=== PATIENT | male | born 1945 | race Caucasian/White ===

== ENCOUNTER → 2016-09-07 | Outpatient (CLI) | payer OTHER ==
--- NOTE | 2016-09-07 10:04 | CT ---
CT Scan of the Chest (Without Contrast) Clinical Indications: Follow up bilateral infiltrates. Technique: Multidetector helical CT was performed from the superior thoracic inlet to the diaphragm. No intravenous contrast was given. The radiologist manipulated images at the computer workstation. Dose reduction techniques were utilized. Comparison: July 02, 2016. Findings: There is near complete resolution of the patchy right upper lobar consolidative changes. S ignificant interval improvement in the patchy right middle lobe consolidative infiltrates. Right basi lar infiltrates are nearly completely resolved, except for the lower most aspect. In the left lung, there is near complete interval resolution of the left basilar consolidation. There are some calcified mediastinal lymph nodes. Heart size is normal. Moderate coronary artery calc ification is present. Limited examination of the upper abdomen is unremarkable. There is an incidental cyst in the right up per kidney. Bones exhibit degenerative changes only. No lytic or blastic lesions. Impression: 1. Significant interval improvement in the bilateral infiltrates. Near complete resolution of all inf iltrates except for the right middle lobe which shows moderate improvement overall. 2. Old granulomatous disease. 3. Moderate to severe coronary artery calcification on this nongated study.
== END ==
LOC: CIMAGING 09:04
PROVIDERS: ATTEND Internal Medicine Pulmonary Disease
DX: R91.8 Other nonspecific abnormal finding of lung field (principal); I25.10 Atherosclerotic heart disease of native coronary artery without angina pectoris
CPT/HCPCS: 71250-PO

== ENCOUNTER → 2017-01-07 | Outpatient (CLI) | payer OTHER ==
[~2017-01-07] MED LIST: IOPAMIDOL (ISOVUE-300) 100 ML BTL IV ONE
== END ==
LOC: CIMAGING 14:14
PROVIDERS: ATTEND Internal Medicine
DX: R19.02 Left upper quadrant abdominal swelling, mass and lump (principal); R93.5 Abnormal findings on diagnostic imaging of other abdominal regions, including retroperitoneum; N28.1 Cyst of kidney, acquired; M41.9 Scoliosis, unspecified
CPT/HCPCS: 74177; Q9967

== ENCOUNTER → 2017-06-06 | Outpatient (CLI) | payer OTHER | LOC: CIMAGING 09:37 | PROVIDERS: ATTEND Internal Medicine | DX: J21.9 Acute bronchiolitis, unspecified (principal) | CPT/HCPCS: 71020-PO; 90662-PO; 90732-PO; G0008-PO; G0009-PO ==

== ENCOUNTER 2018-02-14 11:45 | Inpatient (IN) | payer OTHER ==
[2018-02-14] MEDS ORDERED: ASPIRIN 81 MG CHEWABLE TAB ONE (12:44)
[2018-02-14] MEDS ORDERED: fentaNYL 100 MCG/2 ML INJ ONE (15:09)
[2018-02-14] MEDS ORDERED: IOPAMIDOL (ISOVUE-370) 150 ML BTL IV ONE ×2 (15:09→17:04)
[2018-02-14] MEDS ORDERED: LIDOCAINE 1% 300 MG/30 ML SDV ONE (15:09)
[2018-02-14] MEDS ORDERED: HEPARIN 10,000 UNIT/10 ML MDV (1,000 UNIT/ML) ONE ×2 (15:09→15:34)
[2018-02-14] MEDS ORDERED: MIDAZOLAM 2 MG/2 ML VIAL ONE ×2 (15:09→17:48)
[2018-02-14] MEDS ORDERED: VERAPAMIL 5 MG/2 ML VIAL ONE ×2 (15:09→15:34)
[2018-02-14] MEDS ORDERED: ABCIXIMAB IV ONE (16:30)
[2018-02-14] MEDS ORDERED: NS IV ONE (16:30)
[2018-02-14] MEDS ORDERED: PRASUGREL HCL 10 MG TAB ONE (16:42)
[2018-02-14] MEDS ORDERED: CLOPIDOGREL BISULFATE 75 MG TAB ONE (16:49)
[2018-02-14] MEDS ORDERED: NITROGLYCERIN 1,500 MCG/15 ML VIAL MISC ONE (16:49)
[2018-02-14] MEDS ORDERED: ABCIXIMAB 10 MG/5 ML VIAL ONE ×3 (17:05→17:20)
[2018-02-14] MEDS ORDERED: ATROPINE SULFATE 1 MG/10 ML SYR ONE (17:10)
[2018-02-14] MEDS ORDERED: ONDANSETRON 4 MG/2 ML VIAL ONE (17:26)
[2018-02-14] MEDS ORDERED: METOPROLOL TARTRATE 5 MG/5 ML INJ ONE ×2 (17:40→17:48)
[2018-02-14] MEDS ORDERED: METOPROLOL TARTRATE 25 MG TAB ONE (22:04)
[2018-02-14] MEDS ORDERED: ONDANSETRON 4 MG/2 ML VIAL IVP PRN (22:20)
[2018-02-14] MEDS ORDERED: DIAZEPAM 5 MG TAB PO PRN (22:21)
--- NOTE | 2018-02-14 22:30 | GHP ---
[f rep st] HISTORY AND PHYSICAL DATE OF ADMISSION: 02/14/2018 CHIEF COMPLAINT: Unstable angina. PRIMARY SAMPLE MAKER HAND: Dr. Johnson HISTORY OF PRESENT ILLNESS: A pleasant 73-year-old male with history of SVT and neuropathy, presenting with intermittent chest pain for the past 2 weeks. He describes a pressure-like sensation on his upper chest, most noticed when running during softball. It feels like a large man is sitting on his chest, with radiation to his right shoulder. Also is accompanied by shortness of breath. Denies radiation to the jaw or left arm. Has chronic numbness, tingling in his hands. No associated nausea or diaphoresis. Also similar symptoms when working in the yard and doing housework. He has been more fatigued. The episodes are lasting 10-15 minutes and resolve with rest. On Tuesday night, he was sitting before dinner and stood up, and developed the same symptoms that lasted 15 minutes. These spontaneously resolved. He was brought in by his son today for persistent symptoms. Has had moderate unintentional weight loss over the last 6 months. He has had a normal colonoscopy recently. His last TSH in June 2017 was greater than 3. REVIEW OF SYSTEMS: I completed a 10-point review of systems, negative except as noted in HPI. PAST MEDICAL HISTORY: Neuropathy in hands and feet of unknown etiology, subclinical hypothyroidism, not on medications, history of SVT. PAST SURGICAL HISTORY: Appendectomy, a right bunionectomy, recent colonoscopy that was negative. FAMILY HISTORY: Mother had either stents or CABG, patient unclear. Dad had emphysema. Brother had an KS at age 67. 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 Drinks occasional alcohol. Smoked 8 years less than a pack a day many years ago. Previously had smoked a pipe. ALLERGIES: Codeine. HOME MEDICATIONS: Metoprolol 25 mg morning, 50 at night, multivitamin, B12, D3 , Aleve, Advil as needed. PHYSICAL EXAMINATION: VITAL SIGNS: Temperature is afebrile. Blood pressure was 1-teens over 80s, respirations 14, heart rate 65. GENERAL: A male, thin, sitting in bed, no acute distress. HEENT: PERRLA. EOMI. Oropharynx clear. CV: Bradycardic, but regular. No murmurs, gallops, or rubs. Trace ankle edema, left greater than right. LUNGS: No crackles, but decreased breath sounds right base. GI: Soft, nontender, nondistended. Positive bowel sounds. : No Barry. MUSCULOSKELETAL: 5/5 upper and lower extremity strength. NEUROLOGIC: Cranial nerves 2 through 12 intact. PSYCH: Alert, oriented x3. LABORATORY DATA: Initial troponins less than 0.012. EKG not personally reviewed. Could not find, but per Dr. Martínez no ST changes. ASSESSMENT AND PLAN: 1. Unstable angina: Concerning symptoms, along with family history of coronary artery disease. Being evaluated by Cardiology, and plan for likely cardiac catheterization. Currently chest pain free. Will monitor in PCU on telemetry. 2. History of supraventricular tachycardia. Will continue metoprolol. 3. Peripheral neuropathy: Unclear etiology, but has been chronic for many years. 4. Unintentional weight loss: He has had a recent colonoscopy that was normal. Last TSH was 3.5. He will need to continue outpatient followup with his provider. 5. Diet: N.p.o. DISPOSITION: Patient warrants observation admission for unstable angina and cardiac catheterization. /[id number]/MODL MTDD
--- NOTE | 2018-02-14 22:31 | GCON ---
[f rep st] CONSULTATION DATE OF CONSULTATION: 02/14/2018 REFERRING PHYSICIAN: Dr. Johnson CHIEF COMPLAINT: Chest pressure. HISTORY OF PRESENT ILLNESS: The patient is a 72-year-old male who was referred to the emergency room by Dr. Johnson for chest pain. He is a very active individual and has been playing softball on a regular basis. He has noted chest pressure and shortness of breath with exertion for the past 2 weeks. His symptoms seem to be progressing. He did note 1 episode of chest pressure at rest the other day. He is currently chest pain free. His other history includes asymptomatic PSVT. He was started on a beta yin for this by Dr. Gross. He denies any palpitations. His risk factors for coronary artery disease include a family history. His brother had a CVA at the age of 65 and a myocardial infarction at the age of 70. PAST MEDICAL HISTORY: None. PAST SURGICAL HISTORY: Appendectomy and bunionectomy. FAMILY HISTORY: As stated above. In addition, his father had emphysema and from complications at the age of 79. His mother had congestive heart failure at the age of 86. SOCIAL HISTORY: He is currently accompanied by his son. He does have a history of tobacco use, but quit 40 years ago. He is currently retired, but did work for [employer]. 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 MEDICATIONS: Metoprolol 25 mg daily. ALLERGIES: Codeine. REVIEW OF SYSTEMS: 10-point review of systems is negative except for what is stated in the H and P. PHYSICAL EXAMINATION: GENERAL: Patient appears in no acute distress. VITAL SIGNS: Blood pressure 175/95, heart rate 77, oxygen saturation of 99% on room air, afebrile. EYES: Pupils are equal. LUNGS: Clear to auscultation. No wheezes, rhonchi, or crackles auscultated. CARDIAC: Regular rate and rhythm without any significant murmurs, rubs, or gallops appreciated. ABDOMEN: Soft, nontender, nondistended. Bowel sounds present. EXTREMITIES: Palpable pulses bilaterally without any evidence of edema. NEUROLOGIC: Nonfocal. PSYCHIATRIC: Mood and affect appropriate. SKIN: No obvious rashes or ecchymosis identified. LABORATORY: Troponin negative x1. DIAGNOSTIC STUDIES: EKG: Normal sinus rhythm with a heart rate of 58 with poor R-wave progression. ASSESSMENT: The patient is a 72-year-old male who presents with unstable angina. PLAN: The patient presents with crescendo angina. His symptoms began 2 weeks ago, were predictable with exertion. He is now having some symptoms at rest. He is currently chest pain free. His EKG is abnormal with poor R-wave progression in the anterior leads, which was reviewed by myself. Treatment options were discussed with him today. This included medical therapy, nuclear stress test, or angiogram. Ultimately, I believe an angiogram is the best way to proceed. He is having unstable symptoms, and I feel that putting him on a treadmill could be dangerous. The risks, benefits, and alternatives of the procedure have been discussed with him today, and he would like to proceed. The patient was discussed with Dr. Arnav Blakely, who agrees with the above. /[id number]/MODL MTDD
[2018-02-15 04:40] LABS: PLATELET COUNT 222 10^3/uL (150-400)
[2018-02-15] MEDS ORDERED: METOPROLOL TARTRATE 25 MG TAB PO SCH ×2 (09:30→21:00)
[2018-02-15] MEDS: METOPROLOL TARTRATE 25 MG TAB PO SCH ×2 (10:00→20:41)
[2018-02-15] MEDS: CLOPIDOGREL BISULFATE 75 MG TAB PO SCH (10:00)
[2018-02-15] MEDS: ASPIRIN 325 MG TAB PO SCH (10:00)
--- NOTE | 2018-02-15 11:06 | CPEKG ---
Heart Rate: 58 RR Interval: 1034 P-R Interval: 152 QRSD Interval: 88 QT Interval: 448 QTC Interval: 441 P [place]: 75 QRS [place]: 24 T Wave [place]: 52 EKG Severity - NORMAL ECG - EKG Impression: SINUS RHYTHM Electronically Signed By: Jude Sanchez 15-Feb-2018 20:36:51
--- NOTE | 2018-02-15 11:43 | PDDXCAT ---
Diagnostic Cath Note - . Date: 02/15/18 Shop Girl: Reddy - Procedure Access: right wrist Procedure: left heart catheterization, coronary angiography, vein graft injection - Materials Left Heart Cath size: 5F Left Heart Cath materials: standard multipack (JL4, JR4, pigtail) - Findings-Left Heart Catheterization LM: The LM bifurcates into an LAD and circumflex system. LAD: There is a 50% LAD lesion at the level of the diagonal takeoff. There is ZAMZAM III flow throughout. LCX: The proximal Lcirc has a 80% long tubular blockage. RCA: The RCA appears diffusely diseased. There is a critical obstruction of 99% at the mid-distal RCA. LVEF: The EF is 65% Wall motion: On the LV gram there is normal LV systolic function. The EF is 65% . There are no resting segmental wall motion abnormalities. 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 There is no gradient on pullback across the aortic valve. There is no evidence of jesi dissection or aneurysm formation. Complications: NONE. Estimated blood loss: <50ml Closure method: TR Band Assessment: The patient has severe [place] vessel coronary disease including flow limiting obstruction of the mid RCA and LCX. Both vessels required stenting. Plan: Dual antiplatelet therapy with Aspirin 325mg for the first month followed by Aspirin 81mg along with Plavix 75mg daily should be continued for at least 1 year following drug eluting stent implantation. No elective surgery for the first 3 months. Decisions to stop dual antiplatelet therapy before 1 year should involve our office [facility]. Intervention: A 6 Thai JR4 guiding catheter was used for guide catheter support. A 0.014" Intuition Wire was advanced across the lesion in the mid-RCA under direct fluoroscopic and angiographic guidance. The lesion was pre-dilated with a 2.5 x 12 mm Emerge balloon. The balloon was then exchanged for a Synergy 2.5 x 38 mm Drug Eluting Stent. The stent was partially deployed, but couldn't be advanced into the original potion because the patient moved and had to be deployed proximally. A second Synergy 2.5 x 24 mm drug eluting stent was then placed to the mid-RCA. S/p stent implantation there was 30% residual stenosis. The RCA thrombosed and the patient developed ST elevation. We returned to the RCA and inflated a 2.75 x 12 Emerge balloon in the mid and proximal RCA multiple times. The patient received ReoPro and Atropine at that time. A Synergy 3.0 x 12 mm Synergy stent was placed to the mid RCA. Post stent dilation was performed with a 3.0 x 12 NC Quantum balloon throughout the entire vessel. There was resolution of the ST elevation changes and ZAMZAM III flow to the distal vessel. We then turned our efforts to the lesion in the left circumflex. The guiding catheter was exchanged for a 6 Thai EBU 3.5 guide catheter. The 0.014 Intuition Wire was advanced across the lesion in the LCX. The lesion was primarily ballooned with a 3.0 x 20 mm balloon. We exchanged the balloon for a stent, but were unable to advance the stent across the lesion. A second 3.0 x 20 mm balloon was then deployed in the LCX. A 6 barbadian guideliner was placed into the proximal circumflex. We then exchanged the balloon for a Synergy 2.75 x 32 mm drug eluting stent. Post stent residual stenosis was 10%. There was ZAMZAM III flow pre and post stent implantation. After stents were placed, the patient's rhythm returned to normal with significant decrease in atrial and ventricular ectopy.
--- NOTE | 2018-02-15 17:24 | PDCARPN ---
Cardiology Progress Note Chief Complaint: Chest pain, shortness of breath. Assessment/Plan: Assessment: Adolfo is a 72-year-old male who presented to the emergency department yesterday with progressive chest pain and shortness of breath. He underwent a cardiac catheterization that revealed severe obstruction in the RCA and proximal left circumflex. We started the patient on dual antiplatelet therapy of Aspirin and Plavix. Overnight the patient has stabilized. His wrist site appears well healed with no signs of infection. Plan: We will continue to monitor the patient. His current medications include Metoprolol tartrate 25 mg, Aspirin 325 mg, Plavix. We anticipate discharge tomorrow. 02/15/18 17:21 Subjective: The patient is feeling well. His wrist appears well healed with no signs of infection. Chest pain has resolved. Reviewed/Discussed With: family, multidisciplinary team Time Spent with Patient: greater than 25 minutes Time Spent with Patient: Greater than 25 minutes spent on this patients care, greater than 50% of time spent counseling, educating, and coordinating care regarding the above mentioned plan. Objective: Vital Signs (8 Hrs) Pulse Resp BP Pulse Ox 02/15/18 10:58 67 91 L 02/15/18 10:00 70 14 130/58 H 98 Intake/Output (24 Hrs) 02/14/18 02/15/18 02/16/18 05:59 05:59 05:59 Intake Total 2066 Output Total 1200 350 Balance 866 -350 Intake: Oral (ml) 400 IV Intake (ml) 1500 IV Infused (ml) 166 Abciximab 9 mg In Ns 250 166 ml @ 20.833 mls/hr IV ONCE ONE Rx#:[id number] Output: Urine (ml) 1200 350 Urinal 1200 350 Other: Weight 63.957 kg Number of Voids Urinal 2 Result Diagrams: 02/15/18 04:20 02/15/18 04:20 Cardiac Labs: Cardiac Lab Results (72 Hrs) 02/15/18 04:20 Troponin I 1.790 H EKG: His EKG prior to cath reveals frequent and consecutive PACs with occasional PVCs. There are nonspecific ST/T abnormalities. ST depression in precordial leads consistent with ischemia. His EKG today has normalized. Telemetry: I reviewed the raw data on the rhythm strips. Telemetry has normalized. There are no significant tachy or abundio dysrhythmias seen on the monitoring. - Physical Exam Constitutional: WDWN, healthy appearing Eyes: PERRL, EOMI Ears, Nose, Mouth, Throat: moist mucous membranes Cardiovascular: regular rate and rhythm, no murmurs, no rubs, other (occasional extra systolies) Peripheral Pulses: 2+: carotid (R), carotid (L), femoral (R), femoral (L), dorsalis-pedis (R), dorsalis-pedis (L) Gastrointestinal: normoactive bowel sounds Skin: no rashes, warm Neurologic: AAOx3 Psychiatric: cooperative, interactive Lymph, Heme, Immunologic: no lymphadenopathy - . Pending Discharge Within 24 Hours: Yes ICD10 Worksheet Patient Problems: Problems Problem Status Onset Coronary artery disease Acute Stented coronary artery Acute Unstable angina Acute - ICD10 Problem Qualifiers (1) Coronary artery disease (2) Stented coronary artery (3) Unstable angina
--- NOTE | 2018-02-15 18:08 | GHP ---
[f rep st] HISTORY AND PHYSICAL DATE OF ADMISSION: 02/14/2018 HISTORY OF PRESENT ILLNESS: The patient is a 72-year-old man, who presented to the emergency departm ent because of complaints of shortness of breath and chest discomfort. The patient felt as if he had chest pressure and tightness; it felt as if he were wrestling and someone was sitting on his chest. He stated specifically that he has always heard of heart attack pain being like an elephant sitting on the chest, and this felt more like a person sitting on his chest on the upper part of his sternum with associated breathlessness and radiation to his left arm. He has been noticing increasing fatigu e and decline in exercise tolerance over the past 5-6 weeks prior to his presentation. CURRENT MEDICATIONS: Include metoprolol tartrate 25 mg p.o. 1 in the morning and then 2 of those eac h evening, multivitamin, B12 daily, D3 400 international units daily, Aleve 220 mg p.o. daily, Advil as needed and Blink drops for dry eyes bilaterally. He has an adverse reaction to codeine which causes nausea and sometimes vomiting. SOCIAL HISTORY: Pertinent for the fact that he does not smoke and has not smoked since the 70s. He was exposed a significant secondhand smoke in his family of origin. 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 PAST SURGICAL HISTORY: Noncontributory. FAMILY HISTORY: Both his parents developed COPD, neither had premature cardiovascular events. His b marilynner who is near his age had a recent stent, but lives in a different city. PHYSICAL EXAMINATION: GENERAL: Patient appears anxious, but not overtly uncomfortable. He is alert and oriented x3. VITAL SIGNS: His blood pressure was 120/73, pulse was irregular secondary to freq uent and consecutive PACs, as well as frequent PVCs. He also had intermittent sinus tachycardia with rates in the 140s. Pulse ox revealed saturation of 93% on room air. EYES: Anicteric. NECK: No J VD or carotid bruits. HEART: Normal S1, S2 without S3, S4. LUNGS: Clear to auscultation anteriorl y and posteriorly bilaterally. ABDOMEN: Benign, with positive bowel sounds. Nondistended, nontende r. EXTREMITIES: Warm, dry, and well perfused. He has a plethysmography trace-assisted Oneal test o n the right-hand side. His EKG revealed sinus rhythm with frequent and consecutive PACs, as well as occasional PVCs with non specific ST-T abnormalities and no definite ST-segment elevation. There was ST depression in the ant erior precordial leads consistent possibly with posterior ischemia. LABORATORY DATA: His laboratory studies were negative, with a negative troponin at the time of his p resentation. He is not anemic. IMPRESSION AND PLAN: The patient presents with crescendo type angina, now with [place] [employer]ov[employer] class IV angina occurring at rest with associated shortness of breath, also occurring at r est consistent with [place] Heart Association class IV symptoms of heart failure. The patient has s alvos of palpitations and premature beats which are probably related to myocardial ischemia, given hi s history of crescendo angina. We discussed the risks, benefits, and alternatives of proceeding with cardiac catheterization. The patient understands those risks and is willing to proceed as planned. He understands that we believe he most likely has coronary obstruction as a cause for his recent sym ptoms. /[id number]/MODL
--- NOTE | 2018-02-15 18:31 | PDMN ---
Medical Necessity Medical necessity: change to IP; los>2mn for crescendo type angine with symptoms of heart failure, s/p cath w/stents; requires continued monitoring in ICU; per order and progress note 02/15/18
--- NOTE | 2018-02-15 21:12 | HOSPPROG ---
Hospitalist Progress Note Assessment/Plan: Assessment: 72 yo M p/w acute coronary syndrome/unstable angina c/b NSVT Plan: # ACS/UA. Acute, new problem, further w/u indicated. evidenced by symptoms at rest, clearly anginal w/ RCA and LCx stenosis on cath, requiring PCI by Dr. Blakely 02/14 -cont on ASA/plavix/statin/bblocker -check LDL and A1c # HTN. Acute on chronic, currently not at goal -add lisinpril 2.5 now, cont metoprolol # NSVT. 7 beat run (personally interpreted) w/ frequent PVCs on tele, patient is arrhythmogenic given that his right side went down during cath -d/w Dr. Layne on rounds, we agree that he is high risk of malignant arrhythmia 24hrs s/p cath, cont to mintor on tele in SDU Diet. Cardiac PPs. Lovenox 40 Code . Full Dispo. ADD 02/16, pedning stabilization of above. Requring inpatient admission status given anticipated LOS > 48hrs for reasonable medical necessity including high risk arrhtymias s/p ACS/stenting Subjective: no chest pain w/ NSVT, no recurrence of sx since cath Objective: Vital Signs Temp Pulse Resp BP Pulse Ox 37.1 C 60 19 161/64 H 97 02/15/18 08:00 02/15/18 20:41 02/15/18 18:00 02/15/18 20:41 02/15/18 18:00 02/14/18 02/15/18 02/16/18 05:59 05:59 05:59 Output Total 1000 Balance -1000 - Physical Exam Constitutional: no apparent distress, appears nourished, not in pain Cardiovascular: regular rate and rhythym, no murmur, rub, or gallop, other ( occasional ectopic beats), No edema Respiratory: no respiratory distress, no rales or rhonchi, clear to auscultation Gastrointestinal: normoactive bowel sounds, soft, non-tender abdomen, no palpable masses Neurologic: AAOx3 Psychiatric: interacting appropriately, not anxious, not encephalopathic, thought process linear ICD10 Worksheet Patient Problems: Problems Problem Status Onset Coronary artery disease Acute Stented coronary artery Acute Unstable angina Acute
[2018-02-15] MEDS: LISINOPRIL 5 MG TAB PO SCH (21:52)
[2018-02-15] MEDS: ENOXAPARIN 40 MG/0.4 ML SYR SC SCH (21:53)
[2018-02-16] MEDS: ASPIRIN 325 MG TAB PO SCH (08:24)
[2018-02-16] MEDS: CLOPIDOGREL BISULFATE 75 MG TAB PO SCH (08:24)
[2018-02-16] MEDS: LISINOPRIL 5 MG TAB PO SCH (08:24)
[2018-02-16] MEDS: METOPROLOL TARTRATE 25 MG TAB PO SCH (08:25)
[2018-02-16] MEDS: ENOXAPARIN 40 MG/0.4 ML SYR SC SCH (08:25)
[2018-02-16] MEDS ORDERED: MULTIVITAMINS 1 EACH TAB PO SCH (09:00)
[2018-02-16] MEDS ORDERED: Herbals/Supplements -Info Only PO SCH (09:00)
[2018-02-16] MEDS ORDERED: CYANO/VITAMIN B12 1000 MCG TAB PO SCH (09:00)
[2018-02-16 11:23] LABS: CREATINE KINASE 108 IU/L (0-224)
--- NOTE | 2018-02-16 11:59 | PDCARPN ---
Cardiology Progress Note Chief Complaint: s/p cath Assessment/Plan: Assessment: Adolfo is a 72 y/o M admitted with unstable angina. He was found to have a 99% RCA obstruction, 80% prox LCX, and 50% LAD lesion. As the stent for the RCA was being deployed the patient moved his arm and therefore it was placed in the prox RCA. The mid RCA was then stented. The RCA thombosed and the patient developed ST elevation requiring ReoPro and Atropine as well as a additional stent. The LCX was then stented. He denies any further chest discomfort. He is having valsalvos of AT at a rate of 115-125 BPM he is asymptomatic. Plan: 1. ACS s/p stenting to the RCA and LCX. He will need to be on DAP therapy for 1 year. 2. HLP- Begin Lipitor 20mg daily and repeat a FLP and LFT's in 8 weeks 3. PAT- increase Metoprolol to 25mg in the AM and 50mg in the evening 4. HTN- Continue Metoprolol and Lisinopril. Follow up at [facility] in one week. 02/16/18 12:00 Subjective: HE denies any CP, SOB, or palpitations. Reviewed/Discussed With: hospitalist Objective: Vital Signs (8 Hrs) Temp Pulse Resp BP Pulse Ox 02/16/18 08:00 36.6 C 126 H 21 H 132/77 H 96 02/16/18 04:00 54 L 14 119/60 92 Intake/Output (24 Hrs) 02/15/18 02/16/18 02/17/18 05:59 05:59 05:59 Intake Total 500 Output Total 2400 Balance -1900 Intake: Oral (ml) 500 Output: Urine (ml) 2400 Urinal 2400 Other: Number of Voids Urinal 2 Result Diagrams: 02/15/18 04:20 02/16/18 06:15 Telemetry: PAT - Physical Exam Constitutional: WDWN Cardiovascular: regular rate and rhythm, no murmurs, no rubs, no gallops, other (right radial is clean, intact, without hematoma) Respiratory: clear to auscultate bilat, no crackles, no wheezes Skin: no edema Neurologic: AAOx3 ICD10 Worksheet Patient Problems: Problems Problem Status Onset Coronary artery disease Acute Stented coronary artery Acute Unstable angina Acute
--- NOTE | 2018-02-16 12:11 | ASMTCMCOM ---
CM Note CM Note Notes: Patient admitted with chest pain. He was taken to phlebotomist lab assistant and is s/p stenting to the RCA and LCX. He will follow up at [facility]. Patient is normally independent, lives with . PT/OT have cleared him for home. No discharge needs identified; Case Management can assist if things change. Date Signed: 02/16/2018 12:10 PM Electronically Signed By:Claudia Fall RN
[2018-02-16 14:10] VITALS: BP 134/76
--- NOTE | 2018-02-16 16:59 | EDPHY ---
H & P Time Seen by Provider: 02/14/18 11:55 - Medical/Surgical History Hx Diabetes: No - Social History Smoking Status: Former smoker Constitutional: Initial Vital Signs Heart Rate 61 02/15/18 05:22 Respiratory Rate 17 02/15/18 05:22 Blood Pressure 121/76 H 02/15/18 05:22 O2 Sat (%) 98 02/15/18 05:22 O2 Delivery Mode Room Air Allergies/Adverse Reactions: codeine Allergy (Verified 07/07/16 13:08) Vomiting Home Medications: Medication Instructions Recorded Herbals/Supplements -Info Only 1 ea PO DAILY 07/07/16 Metoprolol Tartrate 25 mg PO DAILY 07/07/16 Cyanocobalamin [Vitamin B12 (*)] 1,000 mcg PO DAILY 02/14/18 Metoprolol Tartrate [Lopressor 25 50 mg PO HS 02/14/18 mg (*)] Multivitamins [Multivitamin (*)] 1 each PO DAILY 02/14/18 Aspirin [Aspirin 325 mg (*)] 325 mg PO DAILY #30 tab 02/16/18 Atorvastatin Calcium [Lipitor 20 20 mg PO DAILY #30 tab 02/16/18 mg (*)] Clopidogrel Bisulfate [Plavix (*)] 75 mg PO DAILY #30 tab 02/16/18 Medical Decision Making ED Course/Re-evaluation: This note was created during prolonged hospital-wide EHR downtime and may be incomplete or contain inaccuracies to due circumstance limitations. 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 He describes the intermittent sensation of " a large man sitting on my chest" during exertion and lasting about 5-10 minutes each episode after resting. Symptoms can be present during house and yard work, but are most severe when running at his softball games. He has associated lightheadedness and dyspnea. He had a treadmill stress test 6-7 years ago at that he thinks was normal. No history of prior catheterization. He is asymptomatic currently while at rest. No recent illness or trauma. REVIEW OF SYSTEMS: A 10 point review of systems was performed and is negative with the exception of the elements mentioned in the history of present illness. PHYSICAL EXAM: HR, BP, O2 Sat, RR. Temp noted General Appearance: Alert, well hydrated, appropriate, and non-toxic appearing. Head: Atraumatic without scalp tenderness or obvious injury Eyes: Pupils equal, round, reactive to light and accommodation, EOMI, no trauma , no injection. Nose: Atraumatic, no rhinorrhea, clear. Throat: Mucous membranes moist. Neck: Supple, non-tender, no lymphadenopathy. Respiratory: No retractions, no distress, no wheezes, and no Cardiovascular: Regular rate and rhythm, no murmurs, rubs, or gallops. Bilateral carotid, radial , dorsalis pedis, and posterior tibial pulses intaccessory muscle use. Lungs are clear to auscultation bilaterally. act. Good capillary refill all extremities. Gastrointestinal: Abdomen is soft, non-tender, non-distended, no masses, no rebound, no guarding, no peritoneal signs. Musculoskeletal: Normal active ROM of all extremities, atraumatic. Neurological: Alert, appropriate, and interactive. The patient has non-focal cranial nerves, motor, sensory, and cerebellar exam. Skin: No rashes, good turgor, no nodules on palpation. PAST MEDICAL HISTORY: Hyperlipidemia, hypothyroidism PAST SURGICAL HISTORY: Appendectomy SOCIAL HISTORY: Son at bedside. Crystal Report Developer: Dr. Gross DIAGNOSTICS/PROCEDURES/CRITICAL CARE TIME: The 12 lead EKG was interpreted by myself. Sinus mechanism rate 58, no ischemic changes. See hard copy and/or "tracemaster" electronic copy for interpretation. Chest x-ray: Clear lungs. No acute process. DIFFERENTIAL DIAGNOSIS: The differential diagnosis for the patient's chest pain included but was not limited to myocardial ischemia, pulmonary embolus, chest wall pain, pleural inflammation, and pulmonary infectious causes. MEDICAL DECISION MAKING: Presentation concerning for unstable angina/acute coronary syndrome. Vitals stable. Plan for standard cardiac work up including IV, labs, EKG, chest x-ray. ISTAT: Troponin negative. 1255: Consulted with FILOME[facility] Alberts cardiology. She will assess patient in the ED. Spoke with hospitalist service. Dr. Parr accepts admission for acute coronary syndrome. Cardiology will consult. This note was created during prolonged hospital-wide EHR downtime and may be incomplete or contain inaccuracies to due circumstance limitations. - Data Points Laboratory Results: Laboratory Results 06/13/18 04:20 02/15/18 04:20 02/14/18 12:15 Creatine Kinase 108 IU/L IU/L (0-224) CK-MB (CK-2) Fraction 3.93 ng/mL ng/mL (0.00-4.55) Troponin I < 0.012 ng/mL ng/mL (0.000-0.034) Medications Given: Discontinued Medications Aspirin (Aspirin) 325 mg PO DAILY GUILLERMO Stop: 08/14/18 08:59 Last Admin: 02/16/18 08:24 Dose: 325 mg Clopidogrel Bisulfate (Plavix) 75 mg PO DAILY GUILLERMO Stop: 08/14/18 08:59 Last Admin: 02/16/18 08:24 Dose: 75 mg Enoxaparin Sodium (Lovenox) 40 mg SC DAILY GUILLERMO Stop: 08/14/18 21:14 Last Admin: 02/16/18 08:25 Dose: 40 mg Abciximab 9 mg/ Sodium (Chloride) 250 mls @ 20.833 mls/hr IV ONCE ONE Stop: 02/15/18 04:29 Last Admin: 02/15/18 05:24 Dose: Not Given Lisinopril (Zestril) 2.5 mg PO DAILY GUILLERMO Stop: 08/14/18 21:14 Last Admin: 02/16/18 08:24 Dose: 2.5 mg Metoprolol Tartrate (Lopressor) 12.5 mg PO BID GUILLERMO Stop: 08/14/18 08:59 Last Admin: 02/16/18 08:25 Dose: 12.5 mg Multivitamins (Tab-A-Fior) 1 each PO DAILY GUILLERMO Stop: 08/15/18 08:59 Last Admin: 02/16/18 08:24 Dose: 1 each Vitamin B Complex (Vitamin B12) 1,000 mcg PO DAILY GUILLERMO Stop: 08/15/18 08:59 Last Admin: 02/16/18 09:47 Dose: Not Given Point of Care Test Results: Chemistry 02/14/18 12:25 POC Troponin I 0.01 ng/mL ng/mL (0.00-0.08) Departure - Departure Disposition: [facility] Acute Clinical Impression: Acute coronary syndrome Condition: Good Report Scribed for: Guy Martínez Report Scribed by: Kimberlee Freed
--- NOTE | 2018-02-16 19:29 | PDDCSUM ---
Discharge Summary Discharge Summary: DISCHARGE SUMMARY FOLLOW-UP ITEMS: Follow-up LDL in 8 weeks DATE OF ADMISSION: 02/14/2018 DATE OF DISCHARGE: 02/16/2018 DISCHARGE DIAGNOSES: 1. Acute coronary syndrome 2. Hyperlipidemia 3. Paroxysmal atrial tachycardia with nonsustained ventricular tachycardia 4. Chronic hypertension CONSULTATIONS: Cardiology PROCEDURES / IMAGING: Catheterization with stenting of the right coronary artery as well as left circumflex CHIEF COMPLAINT: Acute dizziness SUBJECTIVE: Patient is feeling well at time discharge, he is not having any dizziness PHYSICAL EXAM ON DISCHARGE: Systolic blood pressure 120-160, heart rate 50 01/03/2026, satting well on room air, alert awake oriented x3, lungs are clear to auscultation bilaterally, heart rhythm is regular without any murmurs rubs gallops LABS ON DISCHARGE: LDL 103, creatinine 0.7, hemoglobin A1c 5.7% HOSPITAL COURSE BY PROBLEM: The patient presented with acute coronary syndrome as evidenced by elevated troponin and unstable angina, he was 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 As the stent for the RCA was being deployed the patient had some upper extremity motion and the stent was consequently placed in the proximal RCA. The mid RCA was then subsequently stented. The RCA thrombosed and the patient developed ST elevation requiring ReoPro and atropine as well as additional stent placement. The left circumflex was then stented as well. The patient received extended hospitalization and inpatient admission for monitoring of malignant arrhythmia is following his acute coronary syndrome with both atrial tachycardia as well as nonsustained ventricular tachycardia noted on telemetry. During these rhythms, he was asymptomatic, and his beta- yin was titrated up from the initial dosing of 12.5->25 in the morning and 50 in the evening. These are the doses he was receiving as an outpatient, and he has tolerated them from a heart rate standpoint prior to this hospitalization. He was also initiated on dual anti-platelet therapy which will be continued for 1 year. He was initiated on Lipitor 20 mg with a goal LDL of 70 and will have repeat liver panel and fasting lipid panel in 8 weeks. He will have a follow-up appointment at [facility] on 02/22 and will have blood pressure recheck at that time, to be initiated on lisinopril 2.5 mg if he is hypertensive. DISCHARGE MEDICATIONS: Please see official discharge medication reconciliation sheet in chart , aspirin 325 daily, Plavix 75 daily, Lipitor 20 mg daily, continue home dosage of metoprolol 25/50 DISCHARGE INSTRUCTIONS: Please follow up with [facility] as scheduled on 02/22. TIME SPENT: Greater than 30 minutes were spent on direct patient care, as well as discharge planning and preparation.
== END 2018-02-16 14:00 | disposition home or self-care (01) | DRG 247 ==
LOC: INTOOBSV 13:00 → F2W 14:00 → F2N 18:00 → OBSVTOIN 02-15 18:09
PROVIDERS: ADMIT Internal Medicine; ATTEND Internal Medicine
PROC: B2121ZZ Fluoroscopy of Single Coronary Artery Bypass Graft using Low Osmolar Contrast (ICD-10-PCS; principal; 2018-02-15)
PROC: B2111ZZ Fluoroscopy of Multiple Coronary Arteries using Low Osmolar Contrast (ICD-10-PCS; principal; 2018-02-15)
PROC: 4A023N7 Measurement of Cardiac Sampling and Pressure, Left Heart, Percutaneous Approach (ICD-10-PCS; principal; 2018-02-15)
PROC: 027135Z Dilation of Coronary Artery, Two Arteries with Two Drug-eluting Intraluminal Devices, Percutaneous Approach (ICD-10-PCS; principal; 2018-02-15)
DX: I24.9 Acute ischemic heart disease, unspecified (principal); I47.2 Ventricular tachycardia; E78.5 Hyperlipidemia, unspecified; I48.0 Paroxysmal atrial fibrillation; I10 Essential (primary) hypertension; Z87.891 Personal history of nicotine dependence; E02 Subclinical iodine-deficiency hypothyroidism; G62.9 Polyneuropathy, unspecified; R63.4 Abnormal weight loss
CPT/HCPCS: 84484-PO; 97161-GP; 97165-GO; C1725; C1769; C1874; C1887; C9600; G0378; G8978-GP-CH; G8979-GP-CH; G8980-GP-CH; G8987-GO-CI; G8988-GO-CI; G8989-GO-CI; J0130; J0461; J1644; J1650; J2250; J2405; J3010; Q9967

== ENCOUNTER → 2018-06-12 | Outpatient (CLI) | payer OTHER | LOC: CIMAGING 08:46 | PROVIDERS: ATTEND Internal Medicine | DX: R05 Cough (principal) | CPT/HCPCS: 36415-PO; 71046-PO ==